=== PATIENT | female | born 1975 | race African-American/Black ===

== ENCOUNTER → 2018-06-11 | Outpatient (CLI) | payer OTHER | LOC: M.RAD 13:03 | DX: Z12.31 Encounter for screening mammogram for malignant neoplasm of breast (principal) ==

== ENCOUNTER → 2018-06-13 | Outpatient (CLI) | payer OTHER | LOC: M.RAD 06-12 08:57 | DX: N63.20 Unspecified lump in the left breast, unspecified quadrant (principal); R92.8 Other abnormal and inconclusive findings on diagnostic imaging of breast ==